=== PATIENT | female | born 1960 | race African-American/Black ===

== ENCOUNTER 2019-03-11 20:55 | Emergency (ER) | payer MEDICAID ==
[~2019-03-11] VITALS: Ht 162.6 cm; Wt 113.0 kg
[2019-03-12] MEDS ORDERED: KETOROLAC 60MG/2ML VIAL IM ONE (00:15)
[2019-03-12] MEDS ORDERED: IBUPROFEN 800MG TABLET PO ONE (01:00)
[2019-03-12] MEDS ORDERED: BACITRACIN ZINC OINT UDPKT TOP ONE (01:30)
[2019-03-12 01:55] VITALS: BP 141/78
== END 2019-03-12 01:56 | disposition home or self-care (01) ==
LOC: ER 23:32
DX: M25.562 Pain in left knee (principal)
CPT/HCPCS: 73562; 99283; J1885

== ENCOUNTER 2021-10-20 14:07 | Emergency (ER) | payer MEDICAID ==
[~2021-10-20] VITALS: Ht 162.6 cm; Wt 105.0 kg
[~2021-10-20 14:07] MED LIST: ASPI-1497 PO; ATOR10TA PO; GLIP10TA10 MT; METF-874 MT
[2021-10-20 17:55] VITALS: BP 127/77
== END 2021-10-20 18:00 | disposition home or self-care (01) ==
LOC: ER 14:07
DX: S09.8XXA Other specified injuries of head, initial encounter (principal); W18.39XA Other fall on same level, initial encounter; Y93.89 Activity, other specified; Y92.89 Other specified places as the place of occurrence of the external cause; Y99.8 Other external cause status; E11.9 Type 2 diabetes mellitus without complications
CPT/HCPCS: 99284